=== PATIENT | female | born 1940 | race Caucasian/White ===

== ENCOUNTER → 2017-07-29 | Outpatient (CLI) | payer MEDICARE, OTHER | END | disposition home or self-care (01) | LOC: PCVCCLINIC 13:30 | DX: I12.9 Hypertensive chronic kidney disease with stage 1 through stage 4 chronic kidney disease, or unspecified chronic kidney disease (principal); N18.3 Chronic kidney disease, stage 3 (moderate); R94.39 Abnormal result of other cardiovascular function study; I77.1 Stricture of artery; C74.90 Malignant neoplasm of unspecified part of unspecified adrenal gland; E78.00 Pure hypercholesterolemia, unspecified; I65.23 Occlusion and stenosis of bilateral carotid arteries; G47.33 Obstructive sleep apnea (adult) (pediatric); R53.83 Other fatigue; R06.02 Shortness of breath; I27.20 Pulmonary hypertension, unspecified; Z79.82 Long term (current) use of aspirin; Z79.899 Other long term (current) drug therapy; Z88.8 Allergy status to other drugs, medicaments and biological substances | CPT/HCPCS: 80061; 93005; G0463 ==

== ENCOUNTER → 2017-08-18 | Outpatient (CLI) | payer MEDICARE, OTHER | END | disposition home or self-care (01) | LOC: PCVCIMAG 10:00 | DX: I73.9 Peripheral vascular disease, unspecified (principal); R09.89 Other specified symptoms and signs involving the circulatory and respiratory systems; E11.9 Type 2 diabetes mellitus without complications; I10 Essential (primary) hypertension; E78.5 Hyperlipidemia, unspecified; I77.1 Stricture of artery; R06.09 Other forms of dyspnea | CPT/HCPCS: 76770; 78452; 93017; 93880; 93931; 93975; A9500 ==

== ENCOUNTER → 2018-11-10 | Outpatient (CLI) | payer MEDICARE, OTHER ==
--- NOTE | 2018-11-10 17:54 | PCVCIMAG ---
APPROVED REPORT Study performed: 11/10/2018 15:56:08 Exam: Stress Echocardiogram Indication: CAD, Stent, Pacemaker, Pre op surgery clearance Patient Location: Echo lab Stress Nurse: Cee Rhoades RN Status: routine Ht: 5 ft 2 in HR: 68 bpm BP: 140/80 mmHg Rhythm: NSR Medical History Medical History: CAD s/p stent, Pacemaker Procedure The patient underwent an Exercise Stress Test using the Cruz Protocol. Blood pressure, heart rate, and EKG were monitored. An Echocardiogram was performed by microbiology lab technician in four stages in quad fashion. At peak stress, four selected images were obtained and placed side by side with resting images for comparison. Stress Test Details Stress Test: Exercise stress testing was performed using a Cruz protocol. HR Resting HR: 68 bpmMax Heart Rate (APMHR): 141 bpm Max HR Achieved: 116 bpmTarget HR (85% APMHR): 119 bpm % of APMHR: 82 Recovery HR: 61 bpm HR response to stress: Normal HR response to stress BP Resting BP: 140/80 mmHg Max BP: 160/70 mmHg Recovery BP: 142/74 mmHg BP response to stress: Normal blood pressure response to stress. ECG Resting ECG: Sinus Rhythm Stress ECG: Sinus Rhythm Clinical Reason for Termination: Maximal effort Exercise duration: 4 min 34 sec Highest Stage Achieved: Stage 2: 2.5 mph at 12% grade. Exercise capacity: 7.00 METs Overall Exercise Capacity for Age: Poor Pre-Stress Echo The resting Echocardiogram showed normal left ventricular contractility with an estimated Ejection Fraction of about >55%. Very mild apical hypokinesis. Post-Stress Echo The stress Echocardiogram showed normal left ventricular contractility with an estimated Ejection Fraction of about 55-60%. Apical hypokinesis. No new regional wall motion abnormalities. Conclusion Clinical Response: Non-ischemic Exercise Capacity: Below Average Stress ECG Response: Non-ischemic Stress Echo Images: Non-ischemic The left ventricle is normal in size and wall thickness in both the rest and stress images. Trace tricuspid regurgitation. Pulmonary artery pressure is 42mmHg. Trace aortic insufficiency. Other Information Study Quality: Good <Conclusion> The left ventricle is normal in size and wall thickness in both the rest and stress images. Trace tricuspid regurgitation. Pulmonary artery pressure is 42mmHg. Trace aortic insufficiency.
== END | disposition home or self-care (01) ==
LOC: PCVCIMAG 14:46
PROVIDERS: ATTEND Internal Medicine Cardiovascular Disease
DX: I25.10 Atherosclerotic heart disease of native coronary artery without angina pectoris (principal); E11.00 Type 2 diabetes mellitus with hyperosmolarity without nonketotic hyperglycemic-hyperosmolar coma (NKHHC); I77.1 Stricture of artery; I10 Essential (primary) hypertension; R05 Cough; E78.00 Pure hypercholesterolemia, unspecified; I65.23 Occlusion and stenosis of bilateral carotid arteries; G47.30 Sleep apnea, unspecified; Z79.82 Long term (current) use of aspirin; Z88.5 Allergy status to narcotic agent
CPT/HCPCS: 36415; 80061; 93005; 93325; 93351; G0463